=== PATIENT | female | born 1950 ===

== ENCOUNTER 2022-12-23 12:08 | Outpatient (REF) | payer MEDICARE, SELFPAY ==
[2022-12-23 15:55] LABS: HCT 39.7 % (36.0-46.0); HGB 13.1 g/dL (11.2-15.7); MCH 30.2 pg (27.0-33.0); MCV 92 fL (80-95); MPV 10.3 fL (8.0-11.0); Platelet Count 192 10^3/uL (130-400); RBC 4.34 10^6/uL (3.93-5.22); RDW 13.2 % (11.7-14.6); RDW-SD 44.8 fL; WBC 3.84 10^3/uL (4.4-10.8)
[2022-12-23 16:54] LABS: Anion Gap 9.2 mmol/L (3-11); BUN 16 mg/dL (7-18); CO2 26.8 mmol/L (21.0-32.0); CREATININE 0.6 mg/dL (0.55-1.02); Chloride 107 mmol/L (98-107); Cholesterol 179 mg/dL (<200); Estimated GFR 95.31 (mL/min/1.73m2); Glucose 96 mg/dL (74-106); HDL Cholesterol 105 mg/dL (40-60); Potassium 4.4 mmol/L (3.5-5.1); Sodium 143 mmol/L (136-145)
[2022-12-23 16:57] LABS: Triglyceride <25 mg/dL (<150)
[2022-12-23 17:51] LABS: LDL CHOLESTEROL 63 mg/dL (<100)
[2022-12-23 18:35] LABS: Vitamin D 25 Total 91.1 ng/mL (30-100)
== END 2022-12-23 12:09 | disposition home or self-care (01) ==
LOC: NCHCN 12:08
PROVIDERS: Visit Provider Nurse Practitioner Family
DX: Z00.00 Encounter for general adult medical examination without abnormal findings (principal); C56.9 Malignant neoplasm of unspecified ovary
CPT/HCPCS: 80048; 80061; 82306; 83721; 85027

== ENCOUNTER 2024-08-09 16:57 | Outpatient (REF) | payer MEDICARE, SELFPAY ==
[2024-08-09 20:51] LABS: Abs Immature Grans 0.01 10^3/uL (0.0-0.06); Absolute Basophil Count 0.05 10^3/uL (0.0-0.2); Absolute Eosinophil Count 0.07 10^3/uL (0.0-0.7); Absolute Lymphocyte Count 1.41 10^3/uL (1.2-3.4); Absolute Monocyte Count 0.37 10^3/uL (0.1-0.8); Absolute Neutrophil Count 2.69 10^3/uL (1.2-6.7); Basophils % 1.1 %; Eosinophils % 1.5 %; HCT 38.9 % (36.0-46.0); HGB 12.6 g/dL (11.2-15.7); Immature Grans % 0.2 %; Lymphocytes % 30.7 %; MCH 29.6 pg (27.0-33.0); MCHC 32.4 % (32.0-36.0); MCV 92 fL (80-95); Neutrophils % 58.5 %; Platelet Count 200 10^3/uL (130-400); RBC 4.25 10^6/uL (3.93-5.22); RDW 12.9 % (11.7-14.6); RDW-SD 43.2 fL
[2024-08-09 21:27] LABS: ALT 24 U/L (14-59); AST 28 U/L (15-37); Albumin 4.1 g/dL (3.4-5.0); Alkaline Phosphatase 75 U/L (46-116); Anion Gap 7.5 mmol/L (3-11); BUN 15 mg/dL (7-18); Bilirubin, Total 0.5 mg/dL (0.2-1.0); CO2 27.5 mmol/L (21.0-32.0); CREATININE 0.8 mg/dL (0.55-1.02); Calcium 9.6 mg/dL (8.5-10.1); Calculated LDL 76 mg/dL (<100); Chloride 105 mmol/L (98-107); Cholesterol 188 mg/dL (<200); Estimated GFR 77.27 (mL/min/1.73m2); Glucose 84 mg/dL (74-106); HDL Cholesterol 102 mg/dL (>or=50); Potassium 4.1 mmol/L (3.5-5.1); Sodium 140 mmol/L (136-145); TSH (W/Ref FT4) 1.49 uIU/mL (0.36-3.74); Total Protein 7.5 g/dL (6.4-8.2); Triglyceride 51 mg/dL (<150)
[2024-08-11 14:14] LABS: Bacterial Vaginosis (BV) Negative (Negative); Candida glabrata Negative (Negative); Candida species group Negative (Negative); Trichomonas vaginalis Negative (Negative)
== END 2024-08-09 16:58 | disposition home or self-care (01) ==
LOC: NCHCN 16:57
PROVIDERS: Visit Provider Family Medicine
DX: R06.02 Shortness of breath (principal)
CPT/HCPCS: 80053; 80061; 81513; 87481; 87661; 84443; 85025

== ENCOUNTER 2024-09-13 11:39 | Outpatient (REF) | payer MEDICARE, SELFPAY ==
[2024-09-13 16:15] LABS: Hemoglobin A1C 5.6 % (<5.7)
[2024-09-13 23:13] LABS: CRP, High Sensitivity 0.42 mg/L (See Note)
[2024-09-17 14:07] LABS: Apolipoprotein B, S 66 mg/dL
== END 2024-09-13 11:40 | disposition home or self-care (01) ==
LOC: NCHCN 11:39
PROVIDERS: Visit Provider Nurse Practitioner Family
DX: R94.31 Abnormal electrocardiogram [ECG] [EKG] (principal)
CPT/HCPCS: 82172; 86141; 83036